=== PATIENT | male | born 1990 | race Caucasian/White ===

== ENCOUNTER 2018-07-05 17:44 | Emergency (ER) | payer BC ==
[~2018-07-05] VITALS: Ht 172.7 cm; Wt 123.8 kg
[2018-07-05] MEDS ORDERED: SODIUM CHLORIDE FLUSH 10ML SYR IVF ONE (18:00)
[2018-07-05] MEDS ORDERED: ASPIRIN 81 MG TABLET CHEW PO ONE (18:00)
[2018-07-05] MEDS ORDERED: ASPIRIN 81 MG TABLET CHEW ONE (18:07)
[2018-07-05 18:12] LABS: BASOPHILS # (AUTO) 0.06 x10^3/uL (0-0.1); BASOPHILS % (AUTO) 1 % (0-1); EOSINOPHILS # (AUTO) 0.31 x10^3/uL (0-0.4); EOSINOPHILS % (AUTO) 3 % (1-7); LYMPHOCYTES # (AUTO) 1.89 x10^3/uL (1-3.4); LYMPHOCYTES % (AUTO) 19 % (22-44); MD NO; MEAN CORPUSCULAR HEMOGLOBIN 29.6 pg (27.5-34.5); MEAN CORPUSCULAR HGB CONC 34.1 g/dL (33.2-36.2); MEAN CORPUSCULAR VOLUME 86.7 fL (81-97); MEAN PLATELET VOLUME 9.2 fL (7.4-10.4); MONOCYTES # (AUTO) 1.01 x10^3/uL (0.2-0.8); MONOCYTES % (AUTO) 10 % (2-9); NEUTROPHILS # (AUTO) 6.79 x10^3/uL (1.8-6.8); NEUTROPHILS % (AUTO) 68 % (42-75); PLATELET COUNT 290 x10^3/uL (130-400); RED BLOOD COUNT 5.45 x10^6/uL (4.38-5.82); RED CELL DISTRIBUTION WIDTH 12.9 % (9.4-14.8)
[2018-07-05 18:23] LABS: ALBUMIN 4.3 g/dL (3.4-5.0); ANION GAP 7 mmol/L (5-15); CALCIUM 9.4 mg/dL (8.5-10.1); CHLORIDE 105 mmol/L (98-107); CREATININE 0.95 mg/dL (0.7-1.3)
[2018-07-05 18:27] LABS: TROPONIN I < 0.015 ng/mL (0.000-0.045)
[2018-07-05] MEDS ORDERED: METO-99 PO (19:04)
[2018-07-05] MEDS ORDERED: KETOROLAC 30 MG/1 ML ONE (19:09)
[2018-07-05] MEDS ORDERED: KETOROLAC 30 MG/1 ML IM ONE (19:30)
[2018-07-05] MEDS ORDERED: PLEASE ENTER ALLERGIES MC SCH (19:30)
[2018-07-05 20:40] VITALS: BP 140/68
== END 2018-07-05 20:43 | disposition home or self-care (01) ==
LOC: ED 20:37
DX: M94.0 Chondrocostal junction syndrome [Tietze] (principal)
CPT/HCPCS: 36415; 71045; 80048; 82040; 83880; 84484; 85025; 93005; 96372; 99285; J1885